=== PATIENT | male | born 1960 | race Caucasian/White ===

== ENCOUNTER 2017-08-16 08:31 | Emergency (ER) | payer OTHER ==
[~2017-08-16] VITALS: Ht 177.8 cm; Wt 135.5 kg
[~2017-08-16 08:31] MED LIST: ASPIR 8181 M1 PO; ASPIRIN325 MG PO; CYCLOBENZAPRINE10 MG PO; DOXYCYCLINE HY100 MG PO; FORTAMET1000 M1 PO; GLUCOVANCE PO; HUMALOG MI100 UNIT/6 SQ; HYDROCODON-ACE1 EAC9 PO; LOSARTAN POTAS100 MG PO; METFORMIN HCL500 M1 PO; METFORMIN HCL500 MG PO; PRILOSEC20 MG PO; TRILIPIX135 MG PO
[2017-08-16 08:35] VITALS: BP 147/80
[2017-08-16 09:49] LABS: BASOPHIL (%) 0.4 % (0-1); EOSINOPHIL (%) 1.5 % (0-5); EOSINOPHIL COUNT 0.1 K/uL (0-0.3); HEMOGLOBIN 12.6 G/DL (12.5-16.6); IMMATURE GRANULOCYTE (%) 1.2 % (0.0-0.7); LYMPHOCYTE (%) 26.8 % (15-42); LYMPHOCYTE COUNT 2.2 K/uL (1.0-2.8); MCH 27.8 PG (29.0-34.0); MCHC 32.3 G/DL (30.0-36.0); MCV 85.9 FL (86-99); MONOCYTE (%) 11.4 % (3-12); MONOCYTE COUNT 0.9 K/uL (0-0.8); NEUTROPHIL (%) 58.7 % (45-76); NEUTROPHIL COUNT 4.7 K/uL (1.8-6.4); PLATELET COUNT 356 K/uL (156-360); RBC DIS.WIDTH-CV 13.4 % (11.8-14.6); RED BLOOD COUNT 4.54 M/uL (4.00-5.50); WHITE BLOOD COUNT 8.1 K/uL (4.1-10.2)
[2017-08-16 09:52] LABS: AMYLASE 133 IU/L (1-118); CHLORIDE 104 mEq/L (99-109); POTASSIUM 4.2 mEq/L (3.7-5.4); SODIUM 140 mEq/L (136-147)
[2017-08-16 09:54] LABS: GLUCOSE 196 mg/dL (70-99)
[2017-08-16 09:57] LABS: SERUM ETHYL ALCOHOL < 10 mg/dL
[2017-08-16 09:58] LABS: CREATININE 0.8 mg/dL (0.6-1.3); GFR ESTIMATE (CALCULATED) > 59 mL/min/ (58.99-99999)
[2017-08-16 09:59] LABS: UREA NITROGEN (BUN) 15 mg/dL (9-23)
[2017-08-16 10:01] LABS: LIPASE 23 U/L (1.0-51.0)
[2017-08-16] MEDS ORDERED: OCUFLOX 0.100 DROP/5 LEFT EYE (10:22)
[2017-08-16 10:28] LABS: BILIRUBIN NEGATIVE; BLOOD NEGATIVE; COLOR AMBER ((YELLOW)); GLUCOSE (STRIP) 50; KETONES 5; LEUKOCYTES NEGATIVE; NITRITE NEGATIVE; PROTEIN (STRIP) NEGATIVE; SPECIFIC GRAVITY 1.027 (1.000-1.030); UROBILINOGEN 0.2 MG/DL (0.2-1.0)
[2017-08-16 10:30] LABS: APPEARANCE CLEAR ((CLEAR)); UCUL ADDED? NO
[2017-08-16 10:56] LABS: AMPHETAMINE NEGATIVE (500 ng/mL); BENZODIAZEPINES NEGATIVE (150 ng/mL); COCAINE NEGATIVE (150 ng/mL); METHAMPHETAMINE NEGATIVE (500 ng/mL); OPIATES (MORPHINE) PRESUMPTIVE POSITIVE (100 ng/mL); PHENCYCLIDINE NEGATIVE (25 ng/mL); THC CANNABINOIDS NEGATIVE (50 ng/mL); TRICYCLIC ANTIDEPRESSANTS NEGATIVE (300 ng/mL)
[2017-08-16 10:57] LABS: BARBITURATES NEGATIVE (200 ng/mL); BUPRENORPHINE NEGATIVE (10 ng/mL); METHADONE NEGATIVE (200 ng/mL); OXYCODONE NEGATIVE (100 ng/mL); PROPOXYPHENE NEGATIVE (300 ng/mL)
== END 2017-08-16 10:35 | disposition home or self-care (01) ==
LOC: EME 08:31 → TRA 08:31
PROVIDERS: Emergency Medicine
DX: S05.02XA Injury of conjunctiva and corneal abrasion without foreign body, left eye, initial encounter (principal); V40.0XXA Car driver injured in collision with pedestrian or animal in nontraffic accident, initial encounter; Y92.410 Unspecified street and highway as the place of occurrence of the external cause; Z79.82 Long term (current) use of aspirin; E11.9 Type 2 diabetes mellitus without complications; Z79.4 Long term (current) use of insulin; E78.5 Hyperlipidemia, unspecified; K21.9 Gastro-esophageal reflux disease without esophagitis
CPT/HCPCS: 80048; 81003; 82150; 83690; 84999; 85025; 86850; 86900; 86901; 99281; 99285; G0480

== ENCOUNTER 2017-11-15 18:44 | Emergency (ER) | payer OTHER ==
[~2017-11-15] VITALS: Ht 177.8 cm; Wt 135.9 kg
[~2017-11-15 18:44] MED LIST changes: +OCUFLOX 0.100 DROP/5 LEFT EYE
[2017-11-15 19:35] LABS: HEMATOCRIT 38.1 % (38.0-50.0); HEMOGLOBIN 12.3 G/DL (12.5-16.6); MCHC 32.3 G/DL (30.0-36.0); MCV 83.6 FL (86-99); PLATELET COUNT 433 K/uL (156-360); RBC DIS.WIDTH-CV 14.5 % (11.8-14.6); RBC DIS.WIDTH-SD 44.1 % (39-53); RED BLOOD COUNT 4.56 M/uL (4.00-5.50); WHITE BLOOD COUNT 12.4 K/uL (4.1-10.2)
[2017-11-15 19:43] LABS: CHLORIDE 104 mEq/L (99-109); POTASSIUM 4.3 mEq/L (3.7-5.4); SODIUM 140 mEq/L (136-147)
[2017-11-15 19:46] LABS: GLUCOSE 179 mg/dL (70-99); TOTAL PROTEIN 7.4 g/dL (6.4-8.3)
[2017-11-15 19:48] LABS: TOTAL BILIRUBIN 0.3 mg/dL (0.0-1.0)
[2017-11-15 19:49] LABS: ALKALINE PHOSPHATASE 82 IU/L (3-129); CREATININE 0.8 mg/dL (0.6-1.3); GFR ESTIMATE (CALCULATED) > 59 mL/min/ (58.99-99999)
[2017-11-15 19:50] LABS: UREA NITROGEN (BUN) 14 mg/dL (9-23)
[2017-11-15 19:51] LABS: AST (GOT) 23 IU/L (2-34)
[2017-11-15 19:52] LABS: ALT (GPT) 25 IU/L (3-49)
[2017-11-15 19:53] LABS: LIPASE 43 U/L (1.0-51.0)
[2017-11-15 20:04] LABS: APPEARANCE CLEAR ((CLEAR)); BILIRUBIN NEGATIVE; BLOOD NEGATIVE; COLOR YELLOW ((YELLOW)); GLUCOSE (STRIP) NEGATIVE; KETONES 5; LEUKOCYTES NEGATIVE; NITRITE NEGATIVE; PROTEIN (STRIP) NEGATIVE; SPECIFIC GRAVITY 1.024 (1.000-1.030); UCUL ADDED? NO; UROBILINOGEN 0.2 MG/DL (0.2-1.0)
[2017-11-15] MEDS ORDERED: CIPRO500 MG PO (21:15)
[2017-11-15] MEDS ORDERED: PERCOCET 5/31 TABLET PO (21:15)
[2017-11-15] MEDS ORDERED: FLAGYL500 MG PO (21:15)
[2017-11-15] MEDS ORDERED: BENTYL10 MG PO (21:15)
[2017-11-15 21:33] VITALS: BP 139/75
== END 2017-11-15 21:35 | disposition home or self-care (01) ==
LOC: EME 18:44
DX: K57.32 Diverticulitis of large intestine without perforation or abscess without bleeding (principal); N20.0 Calculus of kidney; D17.5 Benign lipomatous neoplasm of intra-abdominal organs; E11.9 Type 2 diabetes mellitus without complications; Z79.4 Long term (current) use of insulin; E78.5 Hyperlipidemia, unspecified; K21.9 Gastro-esophageal reflux disease without esophagitis; Z79.82 Long term (current) use of aspirin; Z87.19 Personal history of other diseases of the digestive system
CPT/HCPCS: 74177; 80053; 81003; 83690; 85027; 99281; 99284; J1885; J2405; J3010

== ENCOUNTER 2017-11-17 19:05 | Emergency (ER) | payer OTHER ==
[~2017-11-17] VITALS: Ht 177.8 cm; Wt 136.4 kg
[~2017-11-17 19:05] MED LIST changes: +BENTYL10 MG PO; +CIPRO500 MG PO; +FLAGYL500 MG PO; +PERCOCET 5/31 TABLET PO
[2017-11-17 19:35] LABS: BASOPHIL (%) 0.3 % (0-1); EOSINOPHIL (%) 2.1 % (0-5); EOSINOPHIL COUNT 0.2 K/uL (0-0.3); HEMATOCRIT 35.5 % (38.0-50.0); HEMOGLOBIN 11.6 G/DL (12.5-16.6); IMMATURE GRANULOCYTE (%) 0.5 % (0.0-0.7); LYMPHOCYTE (%) 15.3 % (15-42); LYMPHOCYTE COUNT 1.5 K/uL (1.0-2.8); MCH 27.2 PG (29.0-34.0); MCHC 32.7 G/DL (30.0-36.0); MCV 83.1 FL (86-99); MONOCYTE (%) 9.7 % (3-12); MONOCYTE COUNT 0.9 K/uL (0-0.8); NEUTROPHIL (%) 72.1 % (45-76); NEUTROPHIL COUNT 6.8 K/uL (1.8-6.4); PLATELET COUNT 387 K/uL (156-360); RBC DIS.WIDTH-CV 14.7 % (11.8-14.6); RBC DIS.WIDTH-SD 44.1 % (39-53); RED BLOOD COUNT 4.27 M/uL (4.00-5.50); WHITE BLOOD COUNT 9.5 K/uL (4.1-10.2)
[2017-11-17 19:45] LABS: APPEARANCE CLEAR ((CLEAR)); BILIRUBIN NEGATIVE; BLOOD NEGATIVE; COLOR YELLOW ((YELLOW)); GLUCOSE (STRIP) >=500; KETONES 5; LEUKOCYTES NEGATIVE; NITRITE NEGATIVE; PROTEIN (STRIP) NEGATIVE; SPECIFIC GRAVITY 1.024 (1.000-1.030); UROBILINOGEN 0.2 MG/DL (0.2-1.0)
[2017-11-17 19:56] LABS: ALBUMIN 3.8 g/dL (3.2-4.8); CHLORIDE 101 mEq/L (99-109); POTASSIUM 4.1 mEq/L (3.7-5.4); SODIUM 136 mEq/L (136-147)
[2017-11-17 19:59] LABS: TOTAL PROTEIN 7.2 g/dL (6.4-8.3)
[2017-11-17 20:00] LABS: GLUCOSE 302 mg/dL (70-99)
[2017-11-17 20:01] LABS: AMPHETAMINE NEGATIVE (500 ng/mL); BARBITURATES NEGATIVE (200 ng/mL); BENZODIAZEPINES NEGATIVE (150 ng/mL); BUPRENORPHINE NEGATIVE (10 ng/mL); COCAINE NEGATIVE (150 ng/mL); METHADONE NEGATIVE (200 ng/mL); METHAMPHETAMINE NEGATIVE (500 ng/mL); OPIATES (MORPHINE) NEGATIVE (100 ng/mL); OXYCODONE PRESUMPTIVE POSITIVE (100 ng/mL); PHENCYCLIDINE NEGATIVE (25 ng/mL); PROPOXYPHENE NEGATIVE (300 ng/mL); THC CANNABINOIDS NEGATIVE (50 ng/mL); TRICYCLIC ANTIDEPRESSANTS NEGATIVE (300 ng/mL)
[2017-11-17 20:02] LABS: ALKALINE PHOSPHATASE 78 IU/L (3-129); TOTAL BILIRUBIN 0.2 mg/dL (0.0-1.0)
[2017-11-17 20:03] LABS: CREATININE 0.8 mg/dL (0.6-1.3); GFR ESTIMATE (CALCULATED) > 59 mL/min/ (58.99-99999)
[2017-11-17 20:04] LABS: AST (GOT) 19 IU/L (2-34); DIRECT BILIRUBIN 0.1 mg/dL (0.0-0.3); UREA NITROGEN (BUN) 11 mg/dL (9-23)
[2017-11-17 20:05] LABS: ALT (GPT) 23 IU/L (3-49)
[2017-11-17 20:06] LABS: LIPASE 52 U/L (1.0-51.0)
[2017-11-18 00:15] VITALS: BP 120/68
== END 2017-11-18 00:34 | disposition home or self-care (01) ==
LOC: EME 19:05
PROVIDERS: Physician Assistant
DX: R10.31 Right lower quadrant pain (principal); R59.0 Localized enlarged lymph nodes; E11.65 Type 2 diabetes mellitus with hyperglycemia; E86.0 Dehydration; K63.89 Other specified diseases of intestine; K57.30 Diverticulosis of large intestine without perforation or abscess without bleeding; K40.20 Bilateral inguinal hernia, without obstruction or gangrene, not specified as recurrent; N28.1 Cyst of kidney, acquired; Z79.4 Long term (current) use of insulin; Z79.82 Long term (current) use of aspirin; Z91.14 Patient's other noncompliance with medication regimen
CPT/HCPCS: 74177; 80048; 80076; 81003; 83605; 83690; 85025; 99281; 99285; J3010; J7030